=== PATIENT | female | born 1980 | race Hispanic/Latino ===

== ENCOUNTER → 2019-11-05 | Emergency (ER) | payer BC ==
[~2019-11-05] VITALS: Ht 162.6 cm; Wt 72.6 kg
[~2019-11-05] MED LIST: ACETAMINOPHEN 325 MG TAB PO ONE; IBUPROFEN 600 MG TAB ONE; IBUPROFEN 600 MG TAB PO STA
[2019-11-05 05:18] LABS: STREPTOCOCCUS GRP A ANTIGEN NEGATIVE (NEGATIVE)
--- NOTE | 2019-11-05 05:28 | Diagnostic Imaging Report ---
EXAMINATION: CHEST 2 VIEWS INDICATION: ^cough, fever ^[id number] ^0445 ^Y COMPARISON: None FINDINGS: PA and lateral views TUBES and LINES: None. LUNGS: Lungs are well inflated. Subsegmental atelectasis in the right middle lobe and left lung base PLEURA: Trace blunting of the right lateral costophrenic angle. No pneumothorax. HEART AND MEDIASTINUM: The cardiomediastinal silhouette is unremarkable.. BONES AND SOFT TISSUES: No focal osseous lesions. Soft tissues are unremarkable. UPPER ABDOMEN: Unremarkable. IMPRESSION: Bibasilar subsegmental atelectasis. Trace right costophrenic angle blunting which may represent a small pleural effusion. Signed by: Dr. Ludin Duncan MD on 11/05/2019 5:26 AM
[2019-11-05 05:31] LABS: INFLUENZAE A&B ANTIGEN (RAPID) POSITIVE FLU A (NEGATIVE)
--- OUTSIDE RECORDS SUMMARY | 2019-11-05 07:26 | XMS REPORT ---
[facility] Address Unknown Phone Unavailable Care Team Providers Care Roadway Designer Name Role Phone Kim HORTON Unavailable Unavailable Problems This patient has no known problems. Allergies, Adverse Reactions, Alerts This patient has no known allergies or adverse reactions. Medications This patient has no known medications. Results Test Description Test Time Test Comments Text Results Atomic Results Result Comments CHEST 2 VIEWS 2019-11-05 04:58:00 [place] [address] Patient Name: JEFF GOLDBERG MR #: [id number] : 1980 Age/Sex: 38/F Req #: [id number] Adm Physician: Ordered by: POP HORTON MD Report #: [id number] Location: ER Room/Bed: Procedure: [id number] DX/CHEST 2 VIEWS Exam Date: 11/05/19 Exam Time: 444 REPORT STATUS: Signed EXAMINATION: CHEST 2 VIEWS INDICATION: cough, fever [id number] Y COMPARISON: None FINDINGS: PA and lateral views TUBES and LINES: None. LUNGS: Lungs are well inflated. Subsegmental atelectasis in the right middle lobe and left lung base PLEURA: Trace blunting of the right lateral costophrenic angle. No pneumothorax. HEART AND MEDIASTINUM: The cardiomediastinal silhouette is unremarkable.. BONES AND SOFT TISSUES: No focal osseous lesions. Soft tissues are unremarkable. UPPER ABDOMEN: Unremarkable. IMPRESSION: Bibasilar subsegmental atelectasis. Trace right costophrenic angle blunting which may represent a small pleural effusion. Signed by: Dr. Doron Duncan MD on 11/05/2019 5:26 AM Dictated By: DORON DUNCAN MD 5 Transcribed By: CANDELARIO on 11/05/19525 COPY TO: POP HORTON MD
== END | disposition home or self-care (01) ==
LOC: ER 04:25
DX: R50.9 Fever, unspecified (principal); J11.1 Influenza due to unidentified influenza virus with other respiratory manifestations
CPT/HCPCS: 71046; 83518; 87070; 87400; 99283

== ENCOUNTER 2024-06-15 21:48 | Emergency (ER) | payer SELFPAY ==
[~2024-06-15] VITALS: Ht 162.6 cm; Wt 69.9 kg
[~2024-06-15 21:48] MED LIST changes: -ACETAMINOPHEN 325 MG TAB PO ONE; +DIFLUCAN100 MG PO; +DIPHENHYDRAMINE25 M2 PO; -IBUPROFEN 600 MG TAB ONE; -IBUPROFEN 600 MG TAB PO STA; +IBUPROFEN200 MG PO; +KETOCONAZOLE15 GM TOP; +LEVOFLOXACIN500 MG PO; +NICORETTE2 MG PO; +VENTOLIN HFA18 GM INH; +ZEPBOUND2.5 MG/0.5
[2024-06-15 22:02] VITALS: PULSE 103; RESP 18; TEMP 98
[2024-06-15] MEDS ORDERED: CLEOCIN HCL300 MG PO (22:40)
[2024-06-15] MEDS: TETANUS/DIPHTHERIA TOX ADULT 0.5 ML SYR IM ONE (22:55)
[2024-06-16] MEDS ORDERED: SODIUM CHLORIDE 0.9% 500ML 500 ML ONE (01:58)
[2024-06-16 02:37] VITALS: BP 124/58; PULSE 63; RESP 18; TEMP 98.3; O2SAT 98
== END 2024-06-16 02:39 | disposition home or self-care (01) ==
LOC: FSED 21:56
DX: S62.522B Displaced fracture of distal phalanx of left thumb, initial encounter for open fracture (principal); W29.4XXA Contact with nail gun, initial encounter; Y92.89 Other specified places as the place of occurrence of the external cause
CPT/HCPCS: 73140; 90471; 90714; 99284; J7040